=== PATIENT | female | born 1945 | race Caucasian/White ===

== ENCOUNTER 2022-05-12 14:02 | Emergency (ER) | payer OTHER ==
[~2022-05-12] VITALS: Ht 167.6 cm; Wt 99.8 kg
[2022-05-12] MEDS ORDERED: LEVOTHYROXINE100 MCG PO (15:31)
[2022-05-12] MEDS ORDERED: METOPROLOL TART50 MG PO (15:31)
[2022-05-12] MEDS ORDERED: BENZONATATE200 M1 PO (15:32)
[2022-05-12] MEDS ORDERED: ESCITALOPRAM OX20 MG PO (15:32)
[2022-05-12] MEDS ORDERED: HYDROCHLOROTH12.5 MG PO (15:32)
[2022-05-12] MEDS ORDERED: VALSARTAN80 MG PO (15:32)
== END 2022-05-12 19:40 | disposition home or self-care (01) ==
LOC: ER 14:02
DX: I10 Essential (primary) hypertension (principal); M19.90 Unspecified osteoarthritis, unspecified site

== ENCOUNTER 2022-06-06 12:35 | Outpatient (CLI) | payer OTHER ==
[~2022-06-06 12:35] MED LIST: BENZONATATE200 M1 PO; ESCITALOPRAM OX20 MG PO; HYDROCHLOROTH12.5 MG PO; LEVOTHYROXINE100 MCG PO; METOPROLOL TART50 MG PO; VALSARTAN80 MG PO
== END 2022-06-06 12:43 | disposition home or self-care (01) ==
LOC: MRI 12:35
DX: S83.241A Other tear of medial meniscus, current injury, right knee, initial encounter (principal); M17.11 Unilateral primary osteoarthritis, right knee; S83.411A Sprain of medial collateral ligament of right knee, initial encounter
CPT/HCPCS: 73721